=== PATIENT | male | born 1930 | race Caucasian/White ===

== ENCOUNTER 2021-07-06 08:09 | Outpatient (CLI) | payer MEDICARE, BC | END 2021-07-06 23:59 | disposition home or self-care (01) | LOC: CARD DIAG 08:09 | PROVIDERS: ATTEND Internal Medicine Cardiovascular Disease | DX: I08.1 Rheumatic disorders of both mitral and tricuspid valves (principal); I10 Essential (primary) hypertension | CPT/HCPCS: 93306 ==